=== PATIENT | female | born 1970 | race Caucasian/White ===

== ENCOUNTER 2016-10-07 19:17 | Emergency (ER) | payer BC ==
[2016-10-07 19:44] LABS: BASOPHILS 0.3 % (0.0-2.0); EOSINOPHILS 3.9 % (0-7); HEMATOCRIT 39.1 % (36.0-48.0); HEMOGLOBIN 12.7 g/dL (12-16); IMMATURE GRANULOCYTES 0.3 % (0-5); LYMPHOCYTES 36.8 % (15-50); MCH 33.6 pg (26.0-34.0); MCHC 32.5 g/dL (31.0-37.0); MCV 103.4 fL (80.0-100.0); MEAN PLATELET VOLUME 9.6 fL (7.4-10.4); MONOCYTES 5.3 % (2-11); NEUTROPHILS 53.4 % (40-80); PLATELET COUNT 281 10x3/uL (130-400); RBC 3.78 10x6/uL (4.00-5.40); RDW 13.6 % (11.5-14.5); WBC 7.7 10x3/uL (4.8-10.8)
[2016-10-07 19:47] LABS: APPEARANCE CLEAR (CLEAR); BILIRUBIN NEGATIVE (NEGATIVE); COLOR YELLOW (YELLOW); GLUCOSE NEGATIVE (NEGATIVE); KETONE NEGATIVE (NEGATIVE); LEUKOCYTE ESTERASE NEGATIVE (NEGATIVE); NITRITE NEGATIVE (NEGATIVE); PROTEIN NEGATIVE (NEGATIVE); UROBILINOGEN NORMAL (NORMAL)
[2016-10-07 20:04] LABS: ALBUMIN 3.3 g/dL (3.4-5.0); ALKALINE PHOSPHATASE 76 U/L (46-116); ALT (SGPT) 21 U/L (10-68); AMYLASE - SERUM 86 U/L (25-115); CALC OSMOLALITY 279 mosm/kg (275-300); CALCIUM 8.5 mg/dL (8.5-10.1); CARBON DIOXIDE 32.3 mmol/L (21.0-32.0); CHLORIDE - SERUM 103 mmol/L (98-107); CREATININE - SERUM 0.8 mg/dL (0.6-1.3); GLUCOSE 96 mg/dL (74-106); LIPASE 160 U/L (73-393); POTASSIUM - SERUM 3.5 mmol/L (3.5-5.1); PROTEIN - SERUM 6.4 g/dL (6.4-8.2); SODIUM 142 mmol/L (136-145); UREA NITROGEN 5 mg/dL (7-18); eGFR NON AFRICAN AMERICAN 82 mL/min (90-120)
[2016-10-07 20:11] LABS: HCG SERUM NEGATIVE (NEGATIVE)
== END 2016-10-07 21:23 | disposition home or self-care (01) ==
LOC: D.ER 19:17
PROVIDERS: Emergency Medicine
DX: R10.9 Unspecified abdominal pain (principal); R11.2 Nausea with vomiting, unspecified; N83.209 Unspecified ovarian cyst, unspecified side; F41.9 Anxiety disorder, unspecified; K21.9 Gastro-esophageal reflux disease without esophagitis; F17.200 Nicotine dependence, unspecified, uncomplicated

== ENCOUNTER → 2016-11-07 18:55 | Outpatient (CLI) | payer MEDICARE | END | disposition home or self-care (01) | LOC: D.MAMMO 14:00 | DX: R92.8 Other abnormal and inconclusive findings on diagnostic imaging of breast (principal) ==

== ENCOUNTER 2017-03-08 08:09 | Observation (INO) | payer MEDICARE ==
[~2017-03-08] VITALS: Ht 160 cm; Wt 80.1 kg
--- NOTE | ~2017-03-08 | CN ---
PATIENT NAME:GILL CLAROS MEDICAL RECORD: [id number] : 74 LOCATION:. D.2122 ADMIT DATE: 03/08/17 ACCOUNT: [id number] CONSULTING PHYSICIAN: GLENN MONTGOMERY MD REFERRING PHYSICIAN: NATALIE DYER MD DATE OF CONSULTATION: 03/08/2017 Cardiology Consultation ADMITTING DIAGNOSES: 1. Chest pain. 2. Hypertension. HISTORY OF PRESENT ILLNESS: Mrs. Claros has been having chest pain when her blood pressure is over 150 systolic. This has been happening quite frequently. She had a cardiac workup a year ago for similar chest pain. She was placed on Hyzaar at that time. Her stress test was normal. Echocardiogram was normal. She has no EKG changes. Troponin is normal. Blood pressure medication is unknown. Her pulse rate is 64. Her systolic blood pressure is in the 150-170 range. PHYSICAL EXAMINATION: GENERAL APPEARANCE: Well-nourished, well-developed, appears stated age. Level of distress, comfortable. PSYCHIATRIC: Mental status, alert, normal affect. Orientation, oriented to time, place and person. EYES: Lids and conjunctiva, noninjected. No discharge, no pallor. ENT: Lips, teeth, gums, normal dentition. Oropharynx, no cyanosis, no pallor. NECK: Carotid arteries, bilateral normal upstroke, no bruits, no thrills. JUGULAR VEINS: No jugular venous pressure or distention. CERVICAL LYMPH NODES: Nontender, nonenlarged. THYROID: Not enlarged. Nontender. No nodules. LUNGS: Respiratory effort, unlabored. CHEST: Normal curvature. No thoracic deformity. No chest wall tenderness. Percussion, resonant. Auscultation, clear. No wheezes, no rales, no rhonchi. CARDIOVASCULAR: Precordial exam, nondisplaced. No heaves or pericardial thrills. Rate and rhythm, regular. Heart sounds, normal S1, normal S2. No S3, no gallop, no rub. Systolic murmur, not heard. Diastolic murmur, not heard. EXTREMITIES: No cyanosis, no edema. Peripheral pulses, full and equal in all extremities, except as noted. No bruits appreciated. ABDOMEN: Soft, nondistended. Normal aorta. No bruit. Nontender. No masses. Liver, nontender, no hepatomegaly. Spleen, nontender, no splenomegaly. MUSCULOSKELETAL: No joint tenderness. No joint swelling. No erythema. NEUROLOGICAL: Normal gait, normal strength, normal tone. SKIN: Warm and dry. OVERALL IMPRESSION: Chest pain in conjunction with elevated blood pressure with a normal stress test a year ago with similar. We do not need to perform cardiac catheterization, a repeat stress test only. Change her blood pressure medication to decrease the blood pressure. Most likely, the pain resolved. We will put her on Procardia-XL 30 mg along with Hyzaar, would be a good combination for her. Most likely her chest pain will resolve with this. TRANSINT:[id number] Voice Confirmation ID: [id number] DOCUMENT ID: [id number] CONSULT REPORT [id number] GILL CLAROS JEFFREY MD CC: [id number] DICTATION DATE: 03/08/17 1154 BOUNTY HUNTER: 03/08/17 1221 ADM IN [facility] [address] [id number]
[2017-03-08 08:30] LABS: BASOPHILS 0.1 % (0-2); EOSINOPHILS 3.9 % (0-7); HEMATOCRIT 44.7 % (36.0-48.0); HEMOGLOBIN 15.7 g/dL (12-16); IMMATURE GRANULOCYTES 0.2 % (0-5); LYMPHOCYTES 18.5 % (15-50); MCH 34.6 pg (26.0-34.0); MCHC 35.1 g/dL (31.0-37.0); MCV 98.5 fL (80.0-100.0); MEAN PLATELET VOLUME 9.7 fL (7.4-10.4); MONOCYTES 3.9 % (2-11); NEUTROPHILS 73.4 % (40-80); PLATELET COUNT 274 10x3/uL (130-400); RBC 4.54 10x6/uL (4.00-5.40); RDW 12.5 % (11.5-14.5); WBC 10.1 10x3/uL (4.8-10.8)
[2017-03-08 08:48] LABS: ALBUMIN 4.2 g/dL (3.4-5.0); ALKALINE PHOSPHATASE 69 U/L (46-116); ALT (SGPT) 24 U/L (10-68); BILIRUBIN - TOTAL 0.21 mg/dL (0.2-1.3); CALC OSMOLALITY 277 mosm/kg (275-300); CALCIUM 9.5 mg/dL (8.5-10.1); CARBON DIOXIDE 29.4 mmol/L (21.0-32.0); CHLORIDE - SERUM 98 mmol/L (98-107); GLUCOSE 121 mg/dL (74-106); PROTEIN - SERUM 8.2 g/dL (6.4-8.2); SODIUM 139 mmol/L (136-145); UREA NITROGEN 9 mg/dL (7-18); eGFR NON AFRICAN AMERICAN 63 mL/min (90-120)
[2017-03-08 08:59] LABS: CKMB 0.1 U/L (0.0-3.6); CREATINE KINASE 99 UL (21-215)
[2017-03-08 09:00] LABS: TROPONIN-I < 0.017 ng/mL (0.000-0.060)
[2017-03-08 11:11] VITALS: BP 155/80; Ht 160 cm; Wt 80.1 kg
[2017-03-08 12:05] VITALS: BP 155/80
[2017-03-08] MEDS ORDERED: TOPAMAX100 MG PO (12:25)
[2017-03-08] MEDS ORDERED: PROTONIX40 MG PO (12:25)
[2017-03-08] MEDS ORDERED: PRINZIDE 20-251 TA1 PO (12:26)
[2017-03-08] MEDS ORDERED: ULTRAM50 MG PO (12:26)
[2017-03-08] MEDS ORDERED: CYMBALTA30 MG PO (12:27)
[2017-03-08 16:00] VITALS: BP 169/92
[2017-03-08 19:00] VITALS: BP 117/81
[2017-03-08 22:04] LABS: POTASSIUM - SERUM 3.6 mmol/L (3.5-5.1); TROPONIN-I < 0.017 ng/mL (0.000-0.060)
[2017-03-09] VITALS: BP 117/75
[2017-03-09 04:00] VITALS: BP 117/75
[2017-03-09 05:37] LABS: BASOPHILS 0.1 % (0-2); EOSINOPHILS 4.1 % (0-7); HEMATOCRIT 45.1 % (36.0-48.0); HEMOGLOBIN 15.5 g/dL (12-16); IMMATURE GRANULOCYTES 0.2 % (0-5); LYMPHOCYTES 18.1 % (15-50); MCHC 34.4 g/dL (31.0-37.0); MCV 98.9 fL (80.0-100.0); MEAN PLATELET VOLUME 10.1 fL (7.4-10.4); MONOCYTES 5.3 % (2-11); NEUTROPHILS 72.2 % (40-80); PLATELET COUNT 301 10x3/uL (130-400); RBC 4.56 10x6/uL (4.00-5.40); RDW 12.7 % (11.5-14.5); WBC 8.6 10x3/uL (4.8-10.8)
[2017-03-09 05:49] LABS: ANION GAP 12.8 mmol/L (8-16); CALCIUM 9.2 mg/dL (8.5-10.1); CARBON DIOXIDE 28.8 mmol/L (21.0-32.0); CREATININE - SERUM 0.9 mg/dL (0.6-1.3); POTASSIUM - SERUM 3.6 mmol/L (3.5-5.1)
[2017-03-09 07:00] VITALS: BP 112/68
[2017-03-09 12:44] VITALS: BP 106/65
[2017-03-09] MEDS ORDERED: NICODERM C1 PATCH .1 TRANSDERM (13:06)
[2017-03-09] MEDS ORDERED: HCTZ25 MG PO ×3 (13:06→13:19)
[2017-03-09] MEDS ORDERED: PROCARDIA XL PO ×2 (13:07→13:17)
[2017-03-09] MEDS ORDERED: COZAAR50 MG PO ×3 (13:07→13:19)
[2017-03-09] MEDS ORDERED: NIFEDIPINE ER30 MG PO (13:19)
== END 2017-03-09 15:30 | disposition home or self-care (01) ==
LOC: D.ER 08:09 → OBSVTIME 09:36 → D.M2 09:36 → D.SDCHOLD 18:00 → D.M2 18:02
PROVIDERS: Emergency Medicine; Family Medicine; ADMIT Emergency Medicine
DX: R07.9 Chest pain, unspecified (principal); I10 Essential (primary) hypertension; I25.2 Old myocardial infarction; F17.203 Nicotine dependence unspecified, with withdrawal; K21.9 Gastro-esophageal reflux disease without esophagitis; F41.9 Anxiety disorder, unspecified; G43.909 Migraine, unspecified, not intractable, without status migrainosus

== ENCOUNTER → 2017-04-10 09:27 | Outpatient (CLI) | payer BC ==
[2017-03-08 11:11] VITALS: BMI 31.6
[~2017-04-10 09:27] MED LIST: COZAAR50 MG PO; CYMBALTA30 MG PO; HCTZ25 MG PO; K-DUR20 MEQ PO; NICODERM C1 PATCH .1 TRANSDERM; NIFEDIPINE ER30 MG PO; PRINZIDE 20-251 TA1 PO; PROCARDIA XL PO; PROTONIX40 MG PO; TOPAMAX100 MG PO; ULTRAM50 MG PO
== END | disposition home or self-care (01) ==
LOC: D.RAD 09:27
DX: R63.1 Polydipsia (principal)

== ENCOUNTER 2017-04-11 07:23 | Outpatient (CLI) | payer BC ==
--- NOTE | ~2017-04-11 | HEMODYNAMI ---
PATIENT:GILL SPIVEY MEDICAL RECORD: [id number] : 74 LOCATION:PIPE ADMISSION DATE: 04/11/17 Generatedon:04/11/201710:18 Patient name: GILL SPIVEY Patient #: [id number] SSN: : 1970 Date of study: 04/11/2017 Page: Of Hemodynamic Procedure Report Patient Data Patient Demographics Procedure consent was obtained First Name: GILL Gender: Female Last Name: PATRIC : 1970 Middle Initial: DENIA Age: 47 year(s) Patient #: [id number] Race: Unknown Additional ID: [id number] Contact details Address: [address] [place] [address] [place] State: [place] City: [facility] Zip code: [address] Past Medical History Allergies: No known allergies Admission Admission Data Admission Date: 04/11/2017 Admission Time: 7:23 Admit Source: Other Lab Results Lab Result Date: 04/11/2017 Lab Result Time: 8:00 Biochemistry Name Units Result Min Max BUN mg/dl 6 -*(----)-- 7 18 Creatinine mg/dl 0.9 --(-*--)-- 0.6 1.3 CBC Name Units Result Min Max Hematocrit % 37.2 *-(----)-- 42 54 Hemoglobin g/dl 12.9 -*(----)-- 13.5 17.5 Procedure Procedure Types Cath Procedure Diagnostic Procedure LHC LHC w/Coronaries Miscellaneous Procedures Moderate Sedation up to 15 minutes Procedure Description Procedure Date Procedure Date: 04/11/2017 Procedure Start Time: 10:08 Procedure End Time: 10:17 Procedure Staff Name Function Isauro Lowery MD Performing Physician Marimar Goins RT Scrub Tremayne Nunn RN Nurse Tigre Sow RT Monitor Procedure Data Cath Procedure Fluoroscopy Diagnostic fluoroscopy Total fluoroscopy Time: time: 85.34 min 85.34 min Diagnostic fluoroscopy Total fluoroscopy dose: dose: 701.37 mGy 701.37 mGy Contrast Material Contrast Material Type Amount (ml) Isovue 300 53 Entry Location Entry Primary Successful Side Size Upsize Upsize Entry Closure Anthony ccessful Closure Location (Fr) 1 (Fr) 2 (Fr) Remarks Device Remarks Radial Right 6 Fr Mechanical artery Short Compression Estimated blood loss: 5 ml Diagnostic catheters Device Type Used For End Catheter Placement Diagnostic Terumo 5Fr Procedure [place] 110cm catheter Procedure Complications No complications Procedure Medications Medication Administration Route Dosage Oxygen NC 2 l/min Heparin Flush Bag added to field 2 bags (1000units/500ml NS) 0.9% NaCl I.V. 100 ml/hr Radial Cocktail added to field 1 syringe (Verapomil 2mg/Nitro 400mcg/Heparin 1500units) Fentanyl I.V. 50 mcg Versed I.V. 1 mg Fentanyl I.V. 50 mcg Versed I.V. 1 mg Radial Cocktail I.A. 1 syringe (Verapomil 2mg/Nitro 400mcg/Heparin 1500units) Fentanyl I.V. 50 mcg Hemodynamics Rest HGB: 12.9 (g/dl) Heart Rate: 81 (bpm) Snapshots Pre Cath Intra NCS Post Cath Vital Signs Time Heart Resp SPO2 NIBP (mmHg) Rhythm Pain Sedation Rate (ipm) (%) Status Level (bpm) 9:52:24 76 18 99 124/78(105) NSR 0 (11) 10(A) , No pain 9:56:28 81 20 97 116/78(99) NSR 0 (11) 10(A) , No pain 10:00:29 79 20 96 115/78(95) NSR 0 (11) 10(A) , No pain 10:04:33 83 19 96 108/74(86) NSR 0 (11) 10(A) , No pain 10:08:37 68 17 96 109/70(86) NSR 0 (11) 9(A) , No pain 10:12:41 87 18 90 101/70(92) NSR 0 (11) 9(A) , No pain 10:16:40 86 18 96 102/74(89) NSR 0 (11) 9(A) , No pain Medications Time Medication Route Dose Verified Delivered Reason Notes Effectiveness by by 9:52:25 Oxygen NC 2 l/min Isauro Nunn RN physician 9:52:37 Heparin Flush added 2 bags Isauro Casper used for Bag to Sebastián Nunn RN procedure (1000units/500ml field NS) 9:52:48 0.9% NaCl I.V. 100 Isauro Casper Per ml/hr Sebastián Nunn RN physician 9:52:57 Radial Cocktail added 1 Isauro Casper used for (Verapomil to syringe Sebastián Nunn RN procedure 2mg/Nitro field 400mcg/Heparin 1500units) 10:06:46 Fentanyl I.V. 50 mcg Isauro Casper for sedation Sebastián Nunn RN 10:06:53 Versed I.V. 1 mg Isauro Casper for sedation Sebastián Nunn RN 10:10:02 Fentanyl I.V. 50 mcg Isauro Casper for sedation Sebastián Nunn RN 10:10:08 Versed I.V. 1 mg Isauro Casper for sedation Sebastián Nunn RN 10:10:22 Radial Cocktail I.A. 1 Isauro Isauro for (Verapomil syringe Sebastián Lowery MD vasodilation 2mg/Nitro 400mcg/Heparin 1500units) 10:12:34 Fentanyl I.V. 50 mcg Isauro Casper for sedation Sebastián Nunn RN Procedure Log Time Note 9:27:40 Tremayne Nunn RN sent for patient. Start room use. 9:33:41 Time tracking: Regular hours 9:33:44 Plan of Care:Hemodynamics will remain stable., Cardiac rhythm will remain stable., Comfort level will be maintained., Respiratory function will remain adequate., Patient/ family verbilizes understanding of procedure., Procedure tolerated without complication., Recovers from procedure without complications.. 9:41:24 Patient received from Pre/Post Procedure Room to CCL 3 Alert and oriented. Tansferred to table in Supine position. 9:41:25 Warm blankets applied, and adriana hugger turned on for patient comfort. 9:41:25 Correct patient and procedure confirmed by team. 9:41:26 Signed procedure consent form obtained from patient. 9:41:27 ECG and BP/O2 sat monitors applied to patient. 9:41:37 H&P Date Dictated: 04/05/2017 Within 30 days and on chart., H&P Addendum completed by physician on day of procedure. (MUST COMPLETE FOR ALL OUTPATIENTS). 9:41:38 Pre-procedure instructions explained to patient. 9:41:39 Pre-op teaching completed and patient verbalized understanding. 9:41:40 Family in waiting room. 9:41:41 Patient NPO since Midnight. 9:41:47 Patient allergic to No known allergies 9:41:49 Is the patient allergic to Iodine/contrast media? No. 9:41:55 Admit Source: Other 9:41:56 Diagnostic Cath status Elective 9:47:23 Vital chart was started 9:47:26 Rhythm: sinus rhythm 9:47:27 Full Disclosure recording started 9:52:25 Oxygen 2 l/min NC was administered by Tremayne Nunn RN; Per physician; 9:52:37 Heparin Flush Bag (1000units/500ml NS) 2 bags added to field was administered by Tremayne Nunn RN; used for procedure; 9:52:48 0.9% NaCl 100 ml/hr I.V. was administered by Tremayne Nunn RN; Per physician; 9:52:57 Radial Cocktail (Verapomil 2mg/Nitro 400mcg/Heparin 1500units) 1 syringe added to field was administered by Tremayne Nunn RN; used for procedure; 9:54:28 Is patient on blood thinner?No 9:54:29 Patient diabetic? No. 9:54:39 Previous problem with sedation/anesthesia? No ? 9:54:41 Snore? Yes 9:54:43 Sleep apnea? No 9:54:44 Deviated septum? No 9:54:44 Opens mouth fully? Yes 9:54:45 Sticks out tongue? Yes 9:54:46 Airway obstruction? No ? 9:54:50 Dentures? Yes OUT 9:55:17 HCG/Urine : completed and on chart, negative 9:55:33 Modified Trey's test Ulnar > 7 seconds. 9:55:36 Patient pain scale 0/10 ?. 9:55:53 IV patent on arrival in left antecubital with 0.9% NaCl at [facility]. 9:57:14 Lab results completed and on chart. 9:58:28 Lab Result : BUN 6 mg/dl 9:58:28 Lab Result : Creatinine 0.9 mg/dl 9:58:28 Lab Result : Hemoglobin 12.9 g/dl 9:58:28 Lab Result : Hematocrit 37.2 % 9:58:33 Right Radial & Right Groin area was prepped with chlora-prep and draped in sterile fashion 9:58:35 Alarms reviewed by R. N. 9:58:35 Sharps counted by scrub and verified by R.N. 9:59:05 Use device set Radial Dx 9:59:11 Tegaderm 4 x 4 opened to sterile field. 9:59:11 Acist Manifold opened to sterile field. 9:59:12 Acist Hand Control opened to sterile field. 9:59:13 Acist Syringe opened to sterile field. 9:59:13 Medline Cath Pack opened to sterile field. 9:59:13 Bag Decanter opened to sterile field. 9:59:14 Terumo 6Fr Slender Glidesheath opened to sterile field. 9:59:14 St Bobby 260cm J .035 wire opened to sterile field. 10:01:09 Baseline sample Acquired. 10:01:12 Zero performed for pressure channel P1 10:01:16 Physician paged 10:05:31 Physician arrived 10:05:31 --------ALL STOP TIME OUT------ 10:05:31 Final Timeout: patient, procedure, and site verified with staff and physician. All members of the team are in agreement. 10:05:33 Right Radial & Right Groin site verified by team. 10:05:36 Physical assessment completed. ASA score P 2 - A patient with mild systemic disease as per Isauro Lowery MD. 10:05:39 Sedation plan: IV Moderate Sedation Versed, Fentanyl 10:06:46 Fentanyl 50 mcg I.V. was administered by Tremayne Nunn RN; for sedation; 10:06:53 Versed 1 mg I.V. was administered by Tremayne Nunn RN; for sedation; 10:08:18 Procedure started. 10:08:30 Local anesthetic to right radial artery with Lidocaine 2% by Isauro Lowery MD.INITIAL ACCESS ONLY 10:09:21 A 6 Fr Short sheath was inserted into the Right Radial artery 10:10:02 Fentanyl 50 mcg I.V. was administered by Tremayne Nunn RN; for sedation; 10:10:08 Versed 1 mg I.V. was administered by Tremayne Nunn RN; for sedation; 10:10:22 Radial Cocktail (Verapomil 2mg/Nitro 400mcg/Heparin 1500units) 1 syringe I.A. was administered by Isauro Lowery MD; for vasodilation; 10:10:41 A Diagnostic Terumo 5Fr [place] 110cm catheter was advanced over the wire and used for Procedure. 10:10:56 LV gram done using RESTREPO 10:10:58 Injector settings: Ml/sec: 5, Volume: 15, 10:11:02 EF : 60 % 10:11:09 RCA angiography performed. 10:11:21 Catheter exchanged over wire. 10:11:28 Cordis 6FR XBLAD 3.5 guide catheter opened to sterile field. 10:12:01 6 Fr xblad 3.5 guide catheter was inserted over the wire 10:12:34 Fentanyl 50 mcg I.V. was administered by Tremayne Nunn RN; for sedation; 10:13:16 Guide Catheter removed. unable to cannulate vessel. 10:13:29 Medtronic Launcher 6Fr EBU 3.0 guide catheter opened to sterile field. 10:13:38 6 Fr ebu 3.0. guide catheter was inserted over the wire 10:14:31 LCA angiography performed. 10:14:58 Catheter removed. 10:15:23 Terumo TR Band Standard opened to sterile field. 10:15:50 Sheath removed intact; hemostasis achieved with Mechanical Compression to the Right Radial artery. 10:15:52 Procedure ended.(Physican Out) 10:16:04 Fluoroscopy time 85.34 minutes. 10:16:12 Fluoroscopy dose: 701.37 mGy 10:16:12 Flurop Dose total: 701.37 10:16:18 Contrast amount:Isovue 300 53ml. 10:16:19 Sharps counted by scrub and verified by R.N. 10:16:23 TR band inflated with 11cc of air. 10:16:24 Insertion/operative site no bleeding no hematoma. 10:16:31 Post right radial artery:stable, soft, clean and dry 10:16:32 Post Procedure Pulses reassessed and unchanged 10:16:35 Post-procedure physical assessment completed. ASA score P 2 - A patient with mild systemic disease as per Isauro Lowery MD. 10:16:37 Post procedure rhythm: unchanged. 10:16:39 Estimated blood loss: 5 ml 10:16:41 Post procedure instruction explained to patient.Patient verbalizes understanding. 10:16:41 Patient needs reinforcement of post procedure teaching. 10:16:48 Procedure type changed to Cath procedure, Diagnostic procedure, LHC, LHC w/Coronaries, Miscellaneous Procedures, Moderate Sedation up to 15 minutes 10:17:47 Procedure and supply charges have been captured, reviewed, submitted and are correct. 10:17:49 Procedure Complication : No complications 10:17:51 Vital chart was stopped 10:17:52 See physician's report for complete and final results. 10:17:53 Report given to Pre/Post Procedure Room. 10:17:55 Patient transfered to Pre/Post Procedure Room with Stretcher. 10:17:56 Procedure ended. 10:17:56 Full Disclosure recording stopped 10:18:10 End room use (Document Last) Device Usage Item Name Manufacture Quantity Catalog Hospital Part Current Minimal Lot# / Number Charge Number Stock Stock Serial# Code Tegaderm 4 3M 1 [id number] 553269 107625 5 x 4 Acist Acist 1 88688 481077 099615 589244 5 Manifold [employer] Inc Acist Hand Acist 1 71599 642062 434787 800344 5 Control Medical Systems Inc Acist Acist 1 52557 929371 986920 303123 20 Syringe Medical Systems Inc Medline Cardinal 1 [id number] 501331 86153 960207 5 Cath Pack Health Bag Microtek 1 2002S 097190 18545 308555 5 [employer] Terumo 6Fr Terumo 1 [id number] 949281 227251 174149 [address] Bobby 1 626985 331906 237909 837633 30 260cm J .035 wire Diagnostic Terumo 1 [id number] 821910 917751 379634 5 Terumo 5Fr [place] 110cm catheter Cordis 6FR Cardinal 1 [id number] 057609 224430 052875 10 XBLAD 3.5 Health guide catheter Medtronic Medtronic 1 [id number] 474871 46406 725741 0 Launcher 6Fr EBU 3.0 guide catheter Terumo TR Terumo 1 [id number] 149439 545366 643396 40 Band Standard Signature Audit Reagan Stage Time Signature Unsigned Intra-Procedure 04/11/2017 Tigre Sow 10:18:48 AM RT(R) Signatures Monitor : Tigre Sow RT Signature : Date : Time : [id number] [facility] [address]
[~2017-04-11 07:23] MED LIST changes: -K-DUR20 MEQ PO
[2017-04-11 08:01] VITALS: BP 124/78; BMI 27.7
[2017-04-11] MEDS ORDERED: K-DUR20 MEQ PO (08:07)
[2017-04-11 08:14] LABS: BASOPHILS 0.3 % (0-2); EOSINOPHILS 3.5 % (0-7); HEMATOCRIT 37.2 % (36.0-48.0); HEMOGLOBIN 12.9 g/dL (12-16); IMMATURE GRANULOCYTES 0.3 % (0-5); LYMPHOCYTES 27.4 % (15-50); MCH 33.2 pg (26.0-34.0); MCHC 34.7 g/dL (31.0-37.0); MCV 95.9 fL (80.0-100.0); MEAN PLATELET VOLUME 9.7 fL (7.4-10.4); MONOCYTES 5.2 % (2-11); NEUTROPHILS 63.3 % (40-80); PLATELET COUNT 300 10x3/uL (130-400); RBC 3.88 10x6/uL (4.00-5.40); RDW 12.4 % (11.5-14.5); WBC 7.9 10x3/uL (4.8-10.8)
[2017-04-11 08:22] LABS: ANION GAP 11.8 mmol/L (8-16); CALCIUM 8.4 mg/dL (8.5-10.1); CARBON DIOXIDE 31.2 mmol/L (21.0-32.0); CREATININE - SERUM 0.9 mg/dL (0.6-1.3)
[2017-04-11 08:27] LABS: HCG SERUM NEGATIVE (NEGATIVE)
--- NOTE | 2017-04-11 10:45 | NUR ---
2L NC, NO RESP DISTRESS. RIGHT WRIST TR BAND CDI, NO BLEEDING NOTED. DENIES ANY PAIN AT THIS TIME. VSS. DRINK GIVEN. NO C/O NAUSEA. CALL LIGHT WITHIN REACH.
--- NOTE | 2017-04-11 11:12 | NUR ---
3CC OF AIR REMOVED FROM TR BAND, NO BLEEDING NOTED. VSS.
--- NOTE | 2017-04-11 11:26 | NUR ---
3CC OF AIR REMOVED FROM TR BAND, NO BLEEDING NOTED. VSS.
--- NOTE | 2017-04-11 11:58 | NUR ---
3CC OF AIR REMOVED FROM TR BAND, NO BLEEDING NOTED. LEFT AC PIV D/C'D WITH CATHETER INTACT. BAND AID TO SITE. UP TO BEDSIDE TO GET DRESSED.
--- NOTE | 2017-04-11 12:04 | NUR ---
TO RESTROOM TO VOID.
--- NOTE | 2017-04-11 12:08 | NUR ---
REMAINING AIR REMOVED FROM TR BAND, DRESSING PLACED TO SITE. DISCHARGE INSTRUCTIONS GIVEN, VERBALIZED UNDERSTANDING.
--- NOTE | 2017-04-11 12:15 | NUR ---
TAKEN OUT VIA WHEELCHAIR BY CATH OTOLARYNGOLOGY REP. LEFT FACICILTY WITH FAMILY MEMBER AND ALL PERSONAL BELONGINGS.
--- NOTE | 2017-04-28 16:56 | OP ---
PATIENT NAME: GILL SPIVEY MEDICAL RECORD: [id number] :74 LOCATION:D.CAT ADMISSION DATE: SURGEON: GLENN MONTGOMERY MD DATE OF OPERATION: 04/11/2017 PROCEDURES: 1. Left heart catheterization. 2. Selective coronary angiography. 3. Left ventriculogram. INDICATION: Chest pain compatible with angina. PROCEDURE IN DETAIL: After informed consent was obtained and after detailed explanation of risks, benefits as well as alternative therapies, the patient elected to proceed with angiogram and angioplasty. The right radial area was prepped and draped in normal sterile fashion. Right radial artery was cannulated via modified Seldinger technique with placement of 6-Tamazight sheath. All catheters exchanged through this sheath. FINDINGS: The left ventriculogram was performed in standard 30-degree RESTREPO view, reveals good cardiac wall motion, ejection fraction is 60%. SELECTIVE CORONARY ANGIOGRAPHY: Left main, left anterior descending, left circumflex, right coronary artery are all smooth-walled vessels with no angiographic evidence of coronary artery disease. OVERALL IMPRESSION: 1. No angiographic evidence of coronary artery disease. 2. Normal left heart pressures. 3. Normal left ventricular systolic function. Chest pain is noncardiac in etiology. No further cardiac workup needs to be ascertained. TRANSINT:[id number] Voice Confirmation ID: [id number] DOCUMENT ID: [id number] GLENN MONTGOMERY MD at 1656 CC: [id number] DICTATION DATE: 04/11/17 1020 BILINGUAL MANAGER: 04/11/17 1105 DEP CLI 04/11/17 [id number] [place] [address]
== END 2017-04-11 12:15 | disposition home or self-care (01) ==
LOC: D.CATH 07:23
PROVIDERS: Internal Medicine Interventional Cardiology
DX: I20.9 Angina pectoris, unspecified (principal); I10 Essential (primary) hypertension; Z82.49 Family history of ischemic heart disease and other diseases of the circulatory system; F17.200 Nicotine dependence, unspecified, uncomplicated; Z01.812 Encounter for preprocedural laboratory examination

== ENCOUNTER → 2017-12-06 07:30 | Outpatient (CLI) | payer MEDICARE ==
[~2017-12-06 07:30] MED LIST changes: +K-DUR20 MEQ PO; +LEVAQUIN750 MG PO; +LIPITOR20 MG PO
== END | disposition home or self-care (01) ==
LOC: D.MRI 07:30
DX: M54.12 Radiculopathy, cervical region (principal)

== ENCOUNTER 2017-12-14 16:53 | Inpatient (IN) | payer MEDICARE ==
[~2017-12-14] VITALS: Ht 162.6 cm; Wt 79.1 kg
[~2017-12-14 16:53] MED LIST changes: -LEVAQUIN750 MG PO; -LIPITOR20 MG PO
[2017-12-14 17:20] LABS: BASOPHILS 0.1 % (0-2); EOSINOPHILS 0.1 % (0-7); HEMATOCRIT 39.3 % (36.0-48.0); HEMOGLOBIN 13.9 g/dL (12-16); IMMATURE GRANULOCYTES 0.2 % (0-5); LYMPHOCYTES 5.8 % (15-50); MCH 37.1 pg (26.0-34.0); MCHC 35.4 g/dL (31.0-37.0); MCV 104.8 fL (80.0-100.0); MEAN PLATELET VOLUME 9.7 fL (7.4-10.4); MONOCYTES 3.8 % (2-11); PLATELET COUNT 267 10x3/uL (130-400); RBC 3.75 10x6/uL (4.00-5.40); RDW 14.2 % (11.5-14.5)
[2017-12-14 17:56] LABS: HCG URINE NEGATIVE (NEGATIVE)
[2017-12-14 18:00] LABS: APPEARANCE HAZY (CLEAR); BILIRUBIN NEGATIVE (NEGATIVE); COLOR YELLOW (YELLOW); GLUCOSE NEGATIVE (NEGATIVE); KETONE MODERATE mg/dL (NEGATIVE); NITRITE NEGATIVE (NEGATIVE); PROTEIN TRACE mg/dL (NEGATIVE); SPECIFIC GRAVITY 1.015 (1.005-1.020); UROBILINOGEN NORMAL (NORMAL)
[2017-12-14 18:02] LABS: BACTERIA MODERATE /hpf (NONE SEEN); MUCUS <1+ /lpf (NONE SEEN)
[2017-12-14 18:18] LABS: UDS - AMPHET NEGATIVE QUAL (NEGATIVE); UDS - BARB NEGATIVE QUAL (NEGATIVE); UDS - BENZO NEGATIVE QUAL (NEGATIVE); UDS - COCAINE NEGATIVE QUAL (NEGATIVE); UDS - OPIATE NEGATIVE QUAL (NEGATIVE); UDS - PCP NEGATIVE QUAL (NEGATIVE); UDS - THC NEGATIVE QUAL (NEGATIVE)
[2017-12-14 18:42] LABS: ALBUMIN 3.8 g/dL (3.4-5.0); ANION GAP 16.2 mmol/L (8-16); BILIRUBIN - TOTAL 0.5 mg/dL (0.2-1.3); CALCIUM 9.3 mg/dL (8.5-10.1); CARBON DIOXIDE 25.7 mmol/L (21.0-32.0); CREATININE - SERUM 1.2 mg/dL (0.6-1.3); PROTEIN - SERUM 7.8 g/dL (6.4-8.2)
[2017-12-14 18:45] LABS: POTASSIUM - SERUM 2.9 mmol/L (3.5-5.1)
[2017-12-15 05:00] LABS: BASOPHILS 0.1 % (0-2); EOSINOPHILS 0 % (0-7); HEMATOCRIT 32.2 % (36.0-48.0); IMMATURE GRANULOCYTES 0.3 % (0-5); LYMPHOCYTES 7.3 % (15-50); MCH 35.7 pg (26.0-34.0); MCHC 34.2 g/dL (31.0-37.0); MCV 104.5 fL (80.0-100.0); MEAN PLATELET VOLUME 10.1 fL (7.4-10.4); MONOCYTES 4.3 % (2-11); PLATELET COUNT 215 10x3/uL (130-400); RBC 3.08 10x6/uL (4.00-5.40); RDW 14.2 % (11.5-14.5)
[2017-12-15 05:05] LABS: WBC 10.1 10x3/uL (4.8-10.8)
[2017-12-15 05:31] LABS: BILIRUBIN - TOTAL 0.4 mg/dL (0.2-1.3); CALCIUM 7.8 mg/dL (8.5-10.1); CREATININE - SERUM 0.9 mg/dL (0.6-1.3); PROTEIN - SERUM 6.1 g/dL (6.4-8.2)
[2017-12-15 05:32] LABS: ALBUMIN 2.8 g/dL (3.4-5.0); ANION GAP 12.9 mmol/L (8-16); POTASSIUM - SERUM 2.9 mmol/L (3.5-5.1)
[2017-12-15] MEDS ORDERED: LIPITOR20 MG PO (12:09)
[2017-12-15] MEDS ORDERED: ULTRAM50 MG PO (12:11)
[2017-12-15 13:38] VITALS: BP 141/75; Ht 162.6 cm; Wt 79.1 kg
[2017-12-15 16:51] VITALS: BP 126/73
[2017-12-15 21:04] VITALS: BP 145/77
[2017-12-16 01:25] VITALS: BP 141/76
[2017-12-16 05:37] VITALS: BP 136/72
[2017-12-16 05:48] LABS: BASOPHILS 0.1 % (0-2); EOSINOPHILS 0.1 % (0-7); HEMATOCRIT 32.1 % (36.0-48.0); HEMOGLOBIN 10.7 g/dL (12-16); IMMATURE GRANULOCYTES 0.3 % (0-5); MCH 35.4 pg (26.0-34.0); MCHC 33.3 g/dL (31.0-37.0); MCV 106.3 fL (80.0-100.0); MEAN PLATELET VOLUME 9.8 fL (7.4-10.4); MONOCYTES 9.7 % (2-11); NEUTROPHILS 67.8 % (40-80); PLATELET COUNT 216 10x3/uL (130-400); RBC 3.02 10x6/uL (4.00-5.40); RDW 14.1 % (11.5-14.5)
[2017-12-16 05:54] LABS: WBC 7.5 10x3/uL (4.8-10.8)
[2017-12-16 06:23] LABS: ALBUMIN 2.6 g/dL (3.4-5.0); ALKALINE PHOSPHATASE 43 U/L (46-116); ALT (SGPT) 14 U/L (10-68); CALC OSMOLALITY 276 mosm/kg (275-300); CALCIUM 7.8 mg/dL (8.5-10.1); CARBON DIOXIDE 26.5 mmol/L (21.0-32.0); CHLORIDE - SERUM 106 mmol/L (98-107); CREATININE - SERUM 0.8 mg/dL (0.6-1.3); GLUCOSE 83 mg/dL (74-106); POTASSIUM - SERUM 3.3 mmol/L (3.5-5.1); PROTEIN - SERUM 5.9 g/dL (6.4-8.2); SODIUM 141 mmol/L (136-145); eGFR NON AFRICAN AMERICAN 82 mL/min (90-120)
[2017-12-16 06:27] LABS: UREA NITROGEN 5 mg/dL (7-18)
[2017-12-16] MEDS ORDERED: LEVAQUIN750 MG PO (11:34)
== END 2017-12-16 15:44 | disposition home or self-care (01) | DRG 690 ==
LOC: D.ER 16:53 → D.M2 21:25 → D.EDHOLD 21:25 → D.M2 22:22
PROVIDERS: Emergency Medicine; Family Medicine
DX: N39.0 Urinary tract infection, site not specified (principal); F17.203 Nicotine dependence unspecified, with withdrawal; I10 Essential (primary) hypertension; E78.5 Hyperlipidemia, unspecified; J45.909 Unspecified asthma, uncomplicated; F41.9 Anxiety disorder, unspecified; K21.9 Gastro-esophageal reflux disease without esophagitis

== ENCOUNTER → 2018-02-20 08:37 | Outpatient (CLI) | payer MEDICARE ==
[2017-12-15 13:38] VITALS: BMI 29.7
[~2018-02-20 08:37] MED LIST changes: +LEVAQUIN750 MG PO; +LIPITOR20 MG PO
== END | disposition home or self-care (01) ==
LOC: D.MRI 08:37
DX: G44.201 Tension-type headache, unspecified, intractable (principal)

== ENCOUNTER → 2018-05-30 10:42 | Outpatient (CLI) | payer MEDICARE ==
[2017-12-15 13:38] VITALS: BMI 29.7
== END | disposition home or self-care (01) ==
LOC: D.MRI 05-23 10:00
DX: G44.201 Tension-type headache, unspecified, intractable (principal)

== ENCOUNTER 2019-07-15 08:00 | Outpatient (CLI) | payer MEDICARE ==
[2017-12-15 13:38] VITALS: BMI 29.7
== END 2019-07-15 23:59 | disposition home or self-care (01) ==
LOC: D.MAMMO 08:00
PROVIDERS: ATTEND Emergency Medicine
DX: Z12.31 Encounter for screening mammogram for malignant neoplasm of breast (principal)